=== PATIENT | male | born 1940 | race Hispanic/Latino ===

== ENCOUNTER → 2019-11-03 | Outpatient (CLI) | payer OTHER | END | disposition home or self-care (01) | LOC: EDBD 11:30 → RAH 11:32 | PROVIDERS: ATTEND Urology | DX: N28.1 Cyst of kidney, acquired (principal); I70.90 Unspecified atherosclerosis; N13.30 Unspecified hydronephrosis; M47.816 Spondylosis without myelopathy or radiculopathy, lumbar region | CPT/HCPCS: 74176 ==